=== PATIENT | female | born 1990 | race Caucasian/White ===

== ENCOUNTER 2025-06-29 03:37 | Inpatient (IN) | payer MEDICAID ==
[2025-06-29] MEDS ORDERED: Sodium Chloride 0.9% 10 ML Syringe FLUSH PRN (03:52)
[2025-06-29] MEDS: Iopamidol 755 Mg/ML 100 ML Bottle IVPUSH ONE (04:22)
[2025-06-29 04:35] LABS: INR 1.14
[2025-06-29 04:36] LABS: PTT,PARTIAL THROMBOPLSTIN TIME 25.9 SECONDS (21.7-31.4)
[2025-06-29 04:38] LABS: BASOPHILS ABSOLUTE AUTO 0.0 K/mm3 (0.0-0.2); BASOPHILS PERCENT AUTO 0.4 % (0.0-1.0); EOSINOPHILS ABSOLUTE AUTO 0.1 K/mm3 (0.0-0.4); EOSINOPHILS PERCENT AUTO 0.7 % (0.0-6.0); IMMATURE GRAN ABSOLUTE AUTO 0.02 K/mm3 (0.00-0.05); IMMATURE GRAN PERCENT AUTO 0.2 % (0.0-0.4); LYMPHOCYTES ABSOLUTE AUTO 2.6 K/mm3 (1.0-4.8); LYMPHOCYTES PERCENT AUTO 24.8 % (24.0-44.0); MEAN PLATELET VOLUME 9.5 fl (9.4-12.3); MONOCYTES ABSOLUTE AUTO 1.0 K/mm3 (0.0-0.8); MONOCYTES PERCENT AUTO 9.0 % (0.0-8.0); NEUTROPHILS ABSOLUTE AUTO 6.9 K/mm3 (1.8-7.7); NEUTROPHILS PERCENT AUTO 64.9 % (41.0-71.0); NRBC ABSOLUTE 0.00 (0.00-0.02); NRBC PERCENT 0.0 % (0.0-0.2); PLATELET COUNT,PLT 249 K/mm3 (150-400); RED BLOOD CELL COUNT 3.66 M/mm3 (4.10-5.30); WHITE BLOOD CELL COUNT,WBC 10.66 K/mm3 (3.9-11.3)
[2025-06-29 04:43] LABS: A/G RATIO 1.2 (1-2); ALANINE AMINOTRANSFERASE,ALT 78.0 U/L (14-59); ASPARTATE AMNIOTRANSFERASE,AST 206.0 U/L (15-37); BILIRUBIN TOTAL 0.3 mg/dL (0.2-1.0); BLOOD UREA NITROGEN,BUN 12.0 mg/dL (7-18); CARBON DIOXIDE,CO2 22.0 mEq/L (21-32); CHLORIDE,CL 105.0 mEq/L (98-107); CREATININE 0.9 mg/dL (0.55-1.02); EST CRCL DRUG DOSING (CG) 89.69 mL/min; ESTIMATED GFR 87.0 mL/min (>60); GLUCOSE RANDOM 143.0 mg/dL (70-99); POTASSIUM,K 3.5 mEq/L (3.5-5.1); PROTEIN TOTAL,TP 6.7 g/dl (6.4-8.2); SODIUM,NA 141.0 mEq/L (136-145); TROPONIN I HIGH SENSITIVITY 11.0 pg/mL (<=51); TSH 0.633 uIU/mL (0.358-3.74)
[2025-06-29 04:47] LABS: ETHANOL BLOOD MEDICAL 0.0 gm% (0.00)
[2025-06-29] MEDS: Hydrocortisone Sodium Succinate 100 MG/2 ML SDV IVPUSH ONE (04:59)
[2025-06-29 10:11] LABS: APPEARANCE,URINE CLEAR (Clear); GLUCOSE,URINE NEGATIVE (Negative); OCCULT BLOOD,URINE NEGATIVE (Negative)
[2025-06-29 10:24] LABS: SQUAMOUS EPITHELIAL CELLS,UR 0-5 /hpf (0-5)
[2025-06-29 10:25] LABS: BUPRENORPHINE SCREEN,URINE NEGATIVE (CUTOFF=10); METHADONE SCREEN, URINE NEGATIVE (CUTOFF=200); METHAMPHETAMINES SCREEN, URINE NEGATIVE (CUTOFF=500); OXYCODONE SCREEN,URINE NEGATIVE (CUT0FF=100); THC SCREEN,URINE 20 NG/ML NEGATIVE (CUTOFF=50)
[2025-06-29 10:27] LABS: AMPHETAMINES SCREEN, URINE NEGATIVE (CUTOFF=500)
[2025-06-29] MEDS ORDERED: LORazepam 2 MG/ML SDV IVPUSH PRN (20:36)
[2025-06-29] MEDS: Lactated Ringers 1,000 ML IV ONE ×2 (22:02→23:27)
[2025-06-30] MEDS ORDERED: Fluticasone NASAL Spray 16 GM Bottle NASBOTH PRN (00:25)
[2025-06-30] MEDS: Lactated Ringers 1,000 ML IV SCH (00:31)
[2025-06-30] MEDS: Fluticasone NASAL Spray 16 GM Bottle NASBOTH PRN (03:32)
[2025-06-30 04:58] LABS: A/G RATIO 1.1 (1-2); ALANINE AMINOTRANSFERASE,ALT 102.0 U/L (14-59); ASPARTATE AMNIOTRANSFERASE,AST 223.0 U/L (15-37); BILIRUBIN TOTAL 0.2 mg/dL (0.2-1.0); BLOOD UREA NITROGEN,BUN 10.0 mg/dL (7-18); CARBON DIOXIDE,CO2 29.0 mEq/L (21-32); CHLORIDE,CL 104.0 mEq/L (98-107); CREATININE 0.9 mg/dL (0.55-1.02); EST CRCL DRUG DOSING (CG) 76.77 mL/min; ESTIMATED GFR 87.0 mL/min (>60); GLUCOSE RANDOM 129.0 mg/dL (70-99); POTASSIUM,K 3.5 mEq/L (3.5-5.1); PROTEIN TOTAL,TP 6.6 g/dl (6.4-8.2); SODIUM,NA 142.0 mEq/L (136-145)
[2025-06-30 05:25] LABS: CREATINE KINASE,CK 21246.0 U/L (26-192)
[2025-06-30 05:33] LABS: BASOPHILS ABSOLUTE AUTO 0.0 K/mm3 (0.0-0.2); BASOPHILS PERCENT AUTO 0.4 % (0.0-1.0); EOSINOPHILS ABSOLUTE AUTO 0.3 K/mm3 (0.0-0.4); EOSINOPHILS PERCENT AUTO 3.0 % (0.0-6.0); IMMATURE GRAN ABSOLUTE AUTO 0.02 K/mm3 (0.00-0.05); IMMATURE GRAN PERCENT AUTO 0.2 % (0.0-0.4); LYMPHOCYTES ABSOLUTE AUTO 4.0 K/mm3 (1.0-4.8); LYMPHOCYTES PERCENT AUTO 44.2 % (24.0-44.0); MEAN PLATELET VOLUME 9.3 fl (9.4-12.3); MONOCYTES ABSOLUTE AUTO 0.7 K/mm3 (0.0-0.8); MONOCYTES PERCENT AUTO 8.0 % (0.0-8.0); NEUTROPHILS ABSOLUTE AUTO 4.0 K/mm3 (1.8-7.7); NEUTROPHILS PERCENT AUTO 44.2 % (41.0-71.0); NRBC ABSOLUTE 0.00 (0.00-0.02); NRBC PERCENT 0.0 % (0.0-0.2); PLATELET COUNT,PLT 240 K/mm3 (150-400); RED BLOOD CELL COUNT 3.69 M/mm3 (4.10-5.30); WHITE BLOOD CELL COUNT,WBC 9.00 K/mm3 (3.9-11.3)
[2025-06-30] MEDS ORDERED: NORETHINDRONE ACETATE 5 MG PO SCH (10:15)
[2025-06-30] MEDS: Potassium Chloride 20 MEQ Tab.ER PO ONE (12:02)
[2025-06-30] MEDS: Magnesium Sulfat/D5W 1GM/100ML 1 GM in Premix Bag 1 BAG IV ONE (12:03)
[2025-06-30] MEDS: Potassium Phosphates 30 MMOLE in Sodium Chloride 0.9% 500 ML IV ONE (13:18)
[2025-07-01 04:44] LABS: BASOPHILS ABSOLUTE AUTO 0.0 K/mm3 (0.0-0.2); BASOPHILS PERCENT AUTO 0.5 % (0.0-1.0); EOSINOPHILS ABSOLUTE AUTO 0.4 K/mm3 (0.0-0.4); EOSINOPHILS PERCENT AUTO 4.8 % (0.0-6.0); IMMATURE GRAN ABSOLUTE AUTO 0.03 K/mm3 (0.00-0.05); IMMATURE GRAN PERCENT AUTO 0.4 % (0.0-0.4); LYMPHOCYTES ABSOLUTE AUTO 2.9 K/mm3 (1.0-4.8); LYMPHOCYTES PERCENT AUTO 38.5 % (24.0-44.0); MEAN PLATELET VOLUME 9.2 fl (9.4-12.3); MONOCYTES ABSOLUTE AUTO 0.7 K/mm3 (0.0-0.8); MONOCYTES PERCENT AUTO 9.5 % (0.0-8.0); NEUTROPHILS ABSOLUTE AUTO 3.5 K/mm3 (1.8-7.7); NEUTROPHILS PERCENT AUTO 46.3 % (41.0-71.0); NRBC ABSOLUTE 0.00 (0.00-0.02); NRBC PERCENT 0.0 % (0.0-0.2); PLATELET COUNT,PLT 240 K/mm3 (150-400); RED BLOOD CELL COUNT 3.58 M/mm3 (4.10-5.30); WHITE BLOOD CELL COUNT,WBC 7.54 K/mm3 (3.9-11.3)
[2025-07-01 05:31] LABS: A/G RATIO 1.1 (1-2); ALANINE AMINOTRANSFERASE,ALT 93.0 U/L (14-59); ASPARTATE AMNIOTRANSFERASE,AST 116.0 U/L (15-37); BILIRUBIN TOTAL 0.2 mg/dL (0.2-1.0); BLOOD UREA NITROGEN,BUN 7.0 mg/dL (7-18); CARBON DIOXIDE,CO2 26.0 mEq/L (21-32); CHLORIDE,CL 105.0 mEq/L (98-107); CREATININE 0.8 mg/dL (0.55-1.02); EST CRCL DRUG DOSING (CG) 86.37 mL/min; ESTIMATED GFR 100.0 mL/min (>60); GLUCOSE RANDOM 140.0 mg/dL (70-99); PHOSPHORUS 4.2 mg/dL (2.6-4.7); POTASSIUM,K 3.9 mEq/L (3.5-5.1); PROTEIN TOTAL,TP 6.6 g/dl (6.4-8.2); SODIUM,NA 142.0 mEq/L (136-145)
[2025-07-01 05:52] LABS: CREATINE KINASE,CK 10540.0 U/L (26-192)
[2025-07-01] MEDS: Sodium Chloride 0.9% 10 ML Syringe FLUSH SCH (12:22)
[2025-07-01] MEDS: Gadobenate Dimeglumine 529 MG/ML 20 ML SDV IVPUSH ONE (12:22)
[2025-07-01] MEDS: Magnesium Sulf/Wat 4 GM/50 mL 4 GM in Premix Bag 1 BAG IV ONE (12:43)
[2025-07-02 06:00] LABS: BLOOD UREA NITROGEN,BUN 6.0 mg/dL (7-18); CARBON DIOXIDE,CO2 28.0 mEq/L (21-32); CHLORIDE,CL 105.0 mEq/L (98-107); CREATININE 0.7 mg/dL (0.55-1.02); EST CRCL DRUG DOSING (CG) 98.71 mL/min; ESTIMATED GFR 117.0 mL/min (>60); GLUCOSE RANDOM 108.0 mg/dL (70-99); POTASSIUM,K 4.0 mEq/L (3.5-5.1); SODIUM,NA 140.0 mEq/L (136-145)
[2025-07-02 06:04] LABS: CREATINE KINASE,CK 3494.0 U/L (26-192)
[2025-07-02] MEDS: Magnesium Sulf/Wat 4 GM/50 mL 4 GM in Premix Bag 1 BAG IV ONE (09:21)
== END 2025-07-02 13:44 | disposition home or self-care (01) | DRG 100 ==
LOC: JD.ED 03:37 → JD.MS 12:51
PROVIDERS: ADMIT Family Medicine; ATTEND Student in an Organized Health Care Education/Training Program
DX: R56.9 Unspecified convulsions (principal); G92.8 Other toxic encephalopathy; E72.20 Disorder of urea cycle metabolism, unspecified; Z68.42 Body mass index [BMI] 45.0-49.9, adult; M62.82 Rhabdomyolysis; E11.9 Type 2 diabetes mellitus without complications; E03.9 Hypothyroidism, unspecified; E78.00 Pure hypercholesterolemia, unspecified; J45.909 Unspecified asthma, uncomplicated; G43.909 Migraine, unspecified, not intractable, without status migrainosus; E66.9 Obesity, unspecified; F90.9 Attention-deficit hyperactivity disorder, unspecified type; F41.9 Anxiety disorder, unspecified; H54.7 Unspecified visual loss; F31.9 Bipolar disorder, unspecified; E83.42 Hypomagnesemia; F95.2 Tourette's disorder; K76.0 Fatty (change of) liver, not elsewhere classified; K76.82 Hepatic encephalopathy; Z79.84 Long term (current) use of oral hypoglycemic drugs; Z79.899 Other long term (current) drug therapy; Z86.16 Personal history of COVID-19; Z87.891 Personal history of nicotine dependence
CPT/HCPCS: 36415; 70450; 70450-26; 70496; 70496-26; 70498; 70498-26; 70553; 70553-26; 76705; 76705-26; 80048; 80053; 80306; 80307; 81001; 82140; 82533; 82550; 83735; 84100; 84443; 84484; 84703; 85025; 85610; 85652; 85730; 86140; 93005; 96374; 97112-GP; 97116-GP; 97161-GP; 97530-GP; 99285-25; A9270-GY; A9577; J1650; J1720; J3475; J3490; J7040; J7120; Q9967

== ENCOUNTER 2025-10-10 14:17 | Emergency (ER) | payer MEDICAID ==
[2025-10-10] MEDS ORDERED: Sodium Chloride 0.9% 10 ML Syringe FLUSH PRN (14:33)
[2025-10-10 14:46] LABS: BASOPHILS ABSOLUTE AUTO 0.0 K/mm3 (0.0-0.2); BASOPHILS PERCENT AUTO 0.3 % (0.0-1.0); EOSINOPHILS ABSOLUTE AUTO 0.3 K/mm3 (0.0-0.4); EOSINOPHILS PERCENT AUTO 2.9 % (0.0-6.0); IMMATURE GRAN ABSOLUTE AUTO 0.03 K/mm3 (0.00-0.05); IMMATURE GRAN PERCENT AUTO 0.3 % (0.0-0.4); LYMPHOCYTES ABSOLUTE AUTO 2.9 K/mm3 (1.0-4.8); LYMPHOCYTES PERCENT AUTO 29.1 % (24.0-44.0); MEAN PLATELET VOLUME 8.5 fl (9.4-12.3); MONOCYTES ABSOLUTE AUTO 0.7 K/mm3 (0.0-0.8); MONOCYTES PERCENT AUTO 7.2 % (0.0-8.0); NEUTROPHILS ABSOLUTE AUTO 6.1 K/mm3 (1.8-7.7); NEUTROPHILS PERCENT AUTO 60.2 % (41.0-71.0); NRBC ABSOLUTE 0.00 (0.00-0.02); NRBC PERCENT 0.0 % (0.0-0.2); PLATELET COUNT,PLT 244 K/mm3 (150-400); RED BLOOD CELL COUNT 4.09 M/mm3 (4.10-5.30); WHITE BLOOD CELL COUNT,WBC 10.07 K/mm3 (3.9-11.3)
[2025-10-10 15:04] LABS: APPEARANCE,URINE CLEAR (Clear); GLUCOSE,URINE NEGATIVE (Negative); OCCULT BLOOD,URINE NEGATIVE (Negative)
[2025-10-10 15:09] LABS: A/G RATIO 1.0 (1-2); ALANINE AMINOTRANSFERASE,ALT 91.0 U/L (14-59); ASPARTATE AMNIOTRANSFERASE,AST 48.0 U/L (15-37); BILIRUBIN TOTAL 0.3 mg/dL (0.2-1.0); BLOOD UREA NITROGEN,BUN 14.0 mg/dL (7-18); CARBON DIOXIDE,CO2 26.0 mEq/L (21-32); CHLORIDE,CL 102.0 mEq/L (98-107); CREATININE 0.9 mg/dL (0.55-1.02); EST CRCL DRUG DOSING (CG) 76.77 mL/min; ESTIMATED GFR 87.0 mL/min (>60); GLUCOSE RANDOM 162.0 mg/dL (70-99); POTASSIUM,K 3.6 mEq/L (3.5-5.1); PROTEIN TOTAL,TP 7.3 g/dl (6.4-8.2); SODIUM,NA 140.0 mEq/L (136-145)
[2025-10-10 15:14] LABS: BUPRENORPHINE SCREEN,URINE NEGATIVE (CUTOFF=10); METHADONE SCREEN, URINE NEGATIVE (CUTOFF=200); METHAMPHETAMINES SCREEN, URINE NEGATIVE (CUTOFF=500); OXYCODONE SCREEN,URINE NEGATIVE (CUT0FF=100); THC SCREEN,URINE 20 NG/ML NEGATIVE (CUTOFF=50)
[2025-10-10 15:16] LABS: AMPHETAMINES SCREEN, URINE NEGATIVE (CUTOFF=500)
[2025-10-10 15:16] LABS: ETHANOL BLOOD MEDICAL 0.0 gm% (0.00)
[2025-10-10 15:18] LABS: LACTIC ACID 2.6 mmol/L (0.4-2.0)
[2025-10-10 15:21] LABS: SQUAMOUS EPITHELIAL CELLS,UR 0-5 /hpf (0-5)
[2025-10-10 17:16] LABS: BICARBONATE,ARTERIAL 32.7 meq/L (22.0-26.0); O2 SATURATION ARTERIAL 98.0 % (96.0-97.0); PCO2 ARTERIAL 46.0 mmHg (35.0-45.0); PO2 ARTERIAL 86.0 mmHg (80.0-100.0)
[2025-10-10 17:17] LABS: BASE EXCESS ARTERIAL 7.8 (-2-2.0)
== END 2025-10-10 20:52 | disposition home or self-care (01) ==
LOC: JD.ED 14:17
DX: R79.81 Abnormal blood-gas level (principal); E78.00 Pure hypercholesterolemia, unspecified; E11.9 Type 2 diabetes mellitus without complications; E03.9 Hypothyroidism, unspecified; J45.909 Unspecified asthma, uncomplicated; E66.9 Obesity, unspecified; Z86.16 Personal history of COVID-19; Z79.899 Other long term (current) drug therapy; Z68.42 Body mass index [BMI] 45.0-49.9, adult
CPT/HCPCS: 36415; 36600; 80053; 80306; 80307; 81001; 82140; 82803; 83605; 84703; 85025; 86140; 99284